=== PATIENT | female | born 2000 | race Hispanic/Latino ===

== ENCOUNTER 2024-05-10 01:33 | Emergency (ER) | payer SELFPAY | END 2024-05-10 02:12 | disposition home or self-care (01) | LOC: CSHERS 01:33 | DX: O99.891 Other specified diseases and conditions complicating pregnancy (principal); J03.90 Acute tonsillitis, unspecified; R59.1 Generalized enlarged lymph nodes; Z3A.01 Less than 8 weeks gestation of pregnancy | CPT/HCPCS: 99283 ==